=== PATIENT | female | born 1970 | race Caucasian/White ===

== ENCOUNTER 2024-10-30 11:07 | Emergency (ER) | payer BC ==
[~2024-10-30] VITALS: Ht 157.4 cm; Wt 51.7 kg
[2024-10-30] MEDS ORDERED: diphenhydrAMINE hydrochloride 50 MG/ML VIAL IM ONE (12:45)
[2024-10-30] MEDS ORDERED: FAMOTIDINE 20 MG TAB PO ONE (12:45)
[2024-10-30] MEDS ORDERED: AZITHROMYCIN 250 MG TAB PO ONE (12:45)
[2024-10-30] MEDS ORDERED: predniSONE 20 MG TAB PO ONE (12:45)
[2024-10-30] MEDS ORDERED: PREDNISONE50 MG PO (14:07)
[2024-10-30] MEDS ORDERED: AVPAK AZITHROM250 M1 PO (14:07)
[2024-10-30] MEDS ORDERED: AMOX-CLAV 875-1 EACH PO (20:33)
== END 2024-10-30 14:14 | disposition home or self-care (01) ==
LOC: ED 11:07
DX: J40 Bronchitis, not specified as acute or chronic (principal); T78.40XA Allergy, unspecified, initial encounter; R21 Rash and other nonspecific skin eruption; Z20.822 Contact with and (suspected) exposure to COVID-19; X58.XXXA Exposure to other specified factors, initial encounter